=== PATIENT | male | born 1965 | race Hispanic/Latino ===

== ENCOUNTER 2016-10-20 07:17 | Day surgery (SDC) | payer OTHER ==
[2015-03-17 13:20] VITALS: BMI 21.7
[2016-10-20] MEDS ORDERED: Propofol 10 mg/ml Inj (20 ML) ONE ×2 (09:17→09:29)
[2016-10-20] MEDS ORDERED: Simethicone 40 mg/0.6 ml Liquid (30 ml) ONE (09:28)
[2016-10-20] MEDS ORDERED: Lidocaine 1% Inj (20ml) ONE (09:29)
[2016-10-20 10:23] VITALS: BP 124/83; PULSE 67; RESP 18; TEMP 97.5; O2SAT 98
== END 2016-10-20 11:07 | disposition home or self-care (01) ==
LOC: ENDO 07:17
PROVIDERS: ATTEND Internal Medicine Gastroenterology
DX: K22.70 Barrett's esophagus without dysplasia (principal); K44.9 Diaphragmatic hernia without obstruction or gangrene; K22.2 Esophageal obstruction; D13.0 Benign neoplasm of esophagus
CPT/HCPCS: 43239; 88305; 88312; J2704; J3010; J7040